=== PATIENT | male | born 1960 | race Caucasian/White ===

== ENCOUNTER 2022-11-13 11:39 | Emergency (ER) | payer BC ==
[~2022-11-13] VITALS: Ht 188 cm; Wt 83.9 kg
[2022-11-13] MEDS ORDERED: LAMICTAL25 MG (14:01)
[2022-11-13] MEDS ORDERED: GRALISE600 MG (14:02)
[2022-11-13] MEDS ORDERED: VYVANSE70 MG (14:02)
[2022-11-13] MEDS ORDERED: DICLOFENAC POTA50 MG PO (16:17)
== END 2022-11-13 16:29 ==
LOC: ER 11:39
DX: S92.351A Displaced fracture of fifth metatarsal bone, right foot, initial encounter for closed fracture (principal); X50.1XXA Overexertion from prolonged static or awkward postures, initial encounter; Y93.9 Activity, unspecified; Y92.413 State road as the place of occurrence of the external cause; S82.64XA Nondisplaced fracture of lateral malleolus of right fibula, initial encounter for closed fracture